=== PATIENT | female | born 1955 | race African-American/Black ===

== ENCOUNTER 2017-05-13 19:47 | Emergency (ER) | payer OTHER ==
[~2017-05-13] VITALS: Ht 152.4 cm; Wt 104.3 kg
[~2017-05-13 19:47] MED LIST: ADVAIR 250-501 EACH IH; ADVAIR HFA 1112 UNIT; ALDACTONE25 MG PO; ASPIR 8181 MG PO; ASPIRIN EC81 M1 PO; AUGMENTIN 875875 MG PO; BUMETANIDE 1 MG1 M1 PO; BUMETANIDE0.25 MG/1 PO; CARVEDILOL12.5 MG PO; COLACE100 MG PO; COMPAZINE10 M1 PO; FERREX-150 PLU150 MG PO; FLAGYL500 MG PO; FLEXERIL PO; HUMALOG100 UNIT/2 SUBQ; HYDROCODONE-AP1 EAC6 PO; IBUPROFEN 800800 MG PO; IRON325 PO; ISOSORBIDE DINI20 M2 PO; K-DUR 20 MEQ T20 MEQ PO; LANTUS SUBQ; LANTUS100 UNIT/M SUBQ; LASIX 40 MG TAB40 M1 PO; LEVAQUIN PO; LEVEMIR SUBQ; LIPITOR 20 MG T20 M1 PO; LISINOPRIL10 MG PO; LISINOPRIL40 MG PO; LOPRESSOR25 PO; LORTAB 5 MG/5001 TA1 PO; MAG-OX 400 TAB400 M1 PO; MICONAZOLE 3 2200 M1 VG; MYCELEX PO; NORCO 5-325 TA1 EACH PO; NORFLEX100 MG PO; NOVOLIN 70100 UNIT/5 SQ; NOVOLOG100 UNIT/1; NOVOLOG100 UNIT/1 SQ; NOVOLOG100 UNIT/1 SUBQ; PREDNISONE 10 M10 MG PO; PROAIR HFA8.5 GM INH; PROBIOTIC1 EAC1 PO; SENOKOT-S1 TA1 PO; SERTRALINE HCL50 MG PO; SIMVASTATIN40 MG PO; TESSALON PERLE100 MG PO; TOPROL XL50 MG PO; TRAMADOL 50 MG50 MG PO; TYLENOL325 MG PO; UNICOMPLEX M TA1 TA1 PO; VENTOLIN HFA 1818 GM INH; XOPENEX0.63 MG/3 INH; ZESTRIL2.5 MG PO; ZOFRAN4 MG PO; [UNRECOGNIZED DRUG - OTHER]
[2017-05-13 20:54] LABS: ABG SAMPLE TYPE ARTERIAL
[2017-05-13 21:04] LABS: ABSOLUTE NEUTROPHILS 8.7 thou/uL (1.4-8.2); BASOPHILS 0.8 % (0.0-2.0); EOSINOPHILS 1.4 % (0.0-3.0); HEMATOCRIT 34.9 % (37.0-47.0); HEMOGLOBIN 11.4 gm/dL (12.0-15.0); LYMPHOCYTES 26.2 % (24.0-44.0); MCH 29.1 pg (26.0-34.0); MCHC 32.7 g/dL (28.0-37.0); MCV 89.1 fL (80.0-100.0); MONOCYTES 7.1 % (1.0-8.0); PLATELET COUNT 329 thou/uL (150-400); POLYS 64.5 % (36.0-66.0); RBC 3.91 mil/uL (4.20-5.00); RDW 12.8 % (10.5-14.5); WBC 13.5 thou/uL (4.0-11.0)
[2017-05-13 21:07] LABS: MANUAL DIFF NO
[2017-05-13 21:11] LABS: CALCIUM 9.6 mg/dL (8.5-10.1); CREATININE 1.2 mg/dL (0.6-1.0); POTASSIUM 3.8 mmol/L (3.5-5.1)
[2017-05-13 21:15] LABS: ALBUMIN 3.1 g/dL (3.4-5.0); TOTAL BILIRUBIN 0.3 mg/dL (<0.1-1.0)
[2017-05-13 21:18] LABS: BE(vivo) 8.2 mmol/L (-2 to +3); HCO3 33.4 mmol/L (22.0-26.0); O2(CT) 16.6 mL/dL (15.0-23.0); O2Hb 97.7 % (92.0-98.0); PCO2 49.3 mmHg (35.0-45.0); PO2 125.1 mmHg (80.0-100.0); pH 7.449 (7.360-7.450); sO2 98.6 % (92.0-98.0); tCO2 34.9 mmol/L (24.0-30.0)
[2017-05-13 21:19] LABS: STICK SITE L.RADIAL
[2017-05-13] MEDS ORDERED: ACCUNEB SO1.25 MG/1 INH (22:40)
[2017-05-13] MEDS ORDERED: ATORVASTATIN CA40 MG PO (22:41)
[2017-05-13] MEDS ORDERED: BRIMONIDINE TAR1 BO1 OP (22:42)
[2017-05-13] MEDS ORDERED: BUMETANIDE0.25 MG/1 PO (22:44)
[2017-05-13] MEDS ORDERED: CARVEDILOL12.5 MG PO (22:45)
[2017-05-13] MEDS ORDERED: FEOSOL325 M1 PO (22:47)
[2017-05-13] MEDS ORDERED: MIRALAX17 GM PO (22:48)
[2017-05-13] MEDS ORDERED: LYRICA 50 MG50 MG PO (22:49)
[2017-05-13 23:40] LABS: URINE BILIRUBIN NEGATIVE (Negative); URINE BLOOD NEGATIVE (Negative); URINE COLOR YELLOW; URINE GLUCOSE-RANDOM* 1+ (Negative); URINE KETONES NEGATIVE (Negative); URINE LEUKOCYTES-REFLEX NEGATIVE (Negative); URINE PROTEIN (DIPSTICK) TRACE (Negative); URINE UROBILINOGEN 0.2 E.U./dl (0.2-1.0)
[2017-05-14] MEDS ORDERED: SENOKOT-S1 TA1 PO (00:09)
[2017-05-14] MEDS ORDERED: ZOFRAN ODT4 MG PO (00:09)
== END 2017-05-14 01:45 | disposition home or self-care (01) ==
LOC: ER 19:47
PROVIDERS: Emergency Medicine
DX: E11.65 Type 2 diabetes mellitus with hyperglycemia (principal); R11.2 Nausea with vomiting, unspecified; I10 Essential (primary) hypertension; E78.00 Pure hypercholesterolemia, unspecified; I25.2 Old myocardial infarction; E66.01 Morbid (severe) obesity due to excess calories; Z90.710 Acquired absence of both cervix and uterus; Z68.41 Body mass index [BMI] 40.0-44.9, adult; Z79.4 Long term (current) use of insulin; Z88.1 Allergy status to other antibiotic agents

== ENCOUNTER 2019-08-05 17:18 | Emergency (ER) | payer OTHER ==
[~2019-08-05] VITALS: Ht 149.9 cm; Wt 99.8 kg
[~2019-08-05 17:18] MED LIST changes: +ACCUNEB SO1.25 MG/1 INH; +ATORVASTATIN CA40 MG PO; +BRIMONIDINE TAR1 BO1 OP; +FEOSOL325 M1 PO; +LYRICA 50 MG50 MG PO; +MIRALAX17 GM PO; +ZOFRAN ODT4 MG PO
[2019-08-05 18:01] LABS: ABSOLUTE NEUTROPHILS 6.3 thou/uL (1.4-8.2); BASOPHILS 1.2 % (0.0-2.0); EOSINOPHILS 1.9 % (0.0-3.0); HEMATOCRIT 40.1 % (37.0-47.0); LYMPHOCYTES 31.1 % (24.0-44.0); MCH 28.7 pg (26.0-34.0); MCHC 32.3 g/dL (28.0-37.0); MCV 88.7 fL (80.0-100.0); PLATELET COUNT 298 thou/uL (150-400); POLYS 60.8 % (36.0-66.0); RBC 4.52 mil/uL (4.20-5.00); RDW 13.8 % (10.5-14.5); WBC 10.4 thou/uL (4.0-11.0)
[2019-08-05 18:06] LABS: ANION GAP 5 mmol/L (7-16); BUN 15 mg/dL (7-18); CALCIUM 9.5 mg/dL (8.5-10.1); CHLORIDE 101 mmol/L (98-107); CO2 31 mmol/L (21-32); CREATININE 0.8 mg/dL (0.6-1.0); GLUCOSE 238 mg/dL (74-106); POTASSIUM 3.9 mmol/L (3.5-5.1); SODIUM 137 mmol/L (136-145)
[2019-08-05 18:17] LABS: ALBUMIN 3.2 g/dL (3.4-5.0); SGOT 14 U/L (15-37); SGPT 18 U/L (30-65); TOTAL BILIRUBIN 0.2 mg/dL (<0.1-1.0); TOTAL PROTEIN 7.7 g/dL (6.4-8.2); TROPONIN-I <0.06 ng/mL (<0.06)
[2019-08-05] MEDS ORDERED: NOVOLIN 70100 UNIT/5 SUBQ (20:10)
[2019-08-05 20:58] VITALS: BP 121/47
== END 2019-08-05 21:04 | disposition home or self-care (01) ==
LOC: ER 17:18
PROVIDERS: Emergency Medicine
DX: I63.9 Cerebral infarction, unspecified (principal); R47.81 Slurred speech; G83.21 Monoplegia of upper limb affecting right dominant side; I10 Essential (primary) hypertension; E78.00 Pure hypercholesterolemia, unspecified; E11.9 Type 2 diabetes mellitus without complications; E66.9 Obesity, unspecified; Z68.41 Body mass index [BMI] 40.0-44.9, adult; Z90.710 Acquired absence of both cervix and uterus; Z88.1 Allergy status to other antibiotic agents

== ENCOUNTER 2020-02-16 14:59 | Inpatient (IN) | payer OTHER ==
[~2020-02-16] VITALS: Ht 149.9 cm; Wt 106.3 kg
[~2020-02-16 14:59] MED LIST changes: +BUMEX2 MG PO; +NOVOLIN 70100 UNIT/5 SUBQ
[2020-02-16 15:00] VITALS: BP 151/82
[2020-02-16 16:46] LABS: BASOPHILS 0.8 % (0.0-2.0); EOSINOPHILS 1.4 % (0.0-3.0); HEMATOCRIT 33.4 % (37.0-47.0); HEMOGLOBIN 10.8 gm/dL (12.0-15.0); LYMPHOCYTES 17.3 % (24.0-44.0); MCH 28.4 pg (26.0-34.0); MCHC 32.3 g/dL (28.0-37.0); MCV 87.9 fL (80.0-100.0); MONOCYTES 5.5 % (1.0-8.0); PLATELET COUNT 264 thou/uL (150-400); RDW 13.9 % (10.5-14.5); WBC 13.3 thou/uL (4.0-11.0)
[2020-02-16 16:58] LABS: ANION GAP 5 mmol/L (7-16); BUN 15 mg/dL (7-18); CALCIUM 9.5 mg/dL (8.5-10.1); CHLORIDE 100 mmol/L (98-107); CO2 32 mmol/L (21-32); CREATININE 0.8 mg/dL (0.6-1.0); GLUCOSE 235 mg/dL (74-106); POTASSIUM 4.5 mmol/L (3.5-5.1); SODIUM 137 mmol/L (136-145)
[2020-02-16 17:10] LABS: ALBUMIN 3.2 g/dL (3.4-5.0); SGOT 19 U/L (15-37); SGPT 53 U/L (30-65); TOTAL BILIRUBIN 0.5 mg/dL (<0.1-1.0); TOTAL PROTEIN 7.1 g/dL (6.4-8.2); TROPONIN-I <0.06 ng/mL (<0.06)
[2020-02-16 18:42] VITALS: BP 175/58
--- NOTE | 2020-02-16 18:42 | NUR ---
HAND OFF TOOL SENT TO 3W AT 7635
[2020-02-16 20:14] VITALS: BP 171/66
[2020-02-16 20:29] LABS: ALBUMIN 3.4 g/dL (3.4-5.0); TOTAL PROTEIN 6.7 g/dL (6.4-8.2)
--- NOTE | 2020-02-16 20:29 | NUR ---
ADMISSION NOTE: TALKED ABOUT THE RESON FOR ISOLATION. IV SITE FLUSHES AND NO PAIN. BP ELEVATED. SHE IS SJORT AND OBESE PULLING UP IN BED IN DIFFICULT FOR HER AT THIS WITH INCREASED OXYGEN DEMAND.
[2020-02-16 20:54] LABS: TSH 1.819 uIU/mL (0.358-3.740)
[2020-02-17 04:40] VITALS: BP 145/93
--- NOTE | 2020-02-17 05:39 | NUR ---
TITRATED HER OXYGEN DOWNB TO 4.5 LITERS, N/C. SHE IS AT 99 %. DENIES PAIN. TURNS SIDE TO SIDE WITH MINIAML ASSIST. SHE IS COMFORTABLE WITH HER BREATHING. CAREPLAN STARTED.
[2020-02-17 06:49] LABS: HEMATOCRIT 35.2 % (37.0-47.0); HEMOGLOBIN 11.1 gm/dL (12.0-15.0); MCH 28.3 pg (26.0-34.0); MCHC 31.6 g/dL (28.0-37.0); MCV 89.4 fL (80.0-100.0); RBC 3.94 mil/uL (4.20-5.00); RDW 14.3 % (10.5-14.5); WBC 11.2 thou/uL (4.0-11.0)
[2020-02-17 07:03] LABS: CALCIUM 9.1 mg/dL (8.5-10.1); CREATININE 0.8 mg/dL (0.6-1.0); MAGNESIUM 2.1 mg/dL (1.8-2.4); POTASSIUM 4.1 mmol/L (3.5-5.1)
[2020-02-17 07:58] VITALS: BP 118/77
--- NOTE | 2020-02-17 08:16 | NUR ---
RD consult received. Pt admitted with acute on chronic CHF, dyspnea. Pending COVID 19 results. Hx DM, HTN, CAD. Called pt room to speak with pt due to covid isolation restrictions. Pt states no problems with appetite. Experienced wt gain 25 lb from 07/2019 admit. On lasix. BG controlled. Extreme class III obesity BMI 49.5. Pt reports does not follow any type of Na restriction at home. Was receptive to some education. Will follow up for education once COVID 19 results available and pt feeling better. Provider has indicated mild protein calorie malnutrition: RD will defer. Low nutrition risk
--- NOTE | 2020-02-17 13:46 | NUR ---
INITIAL ASSESSMENT: Received consult. SW reviewed chart and spoke with nursing and attending physician. Pt was admitted from home due to CHF exacerbation/hypoxia. Pt is currently in Enhanced Isolation to r/o COVID-19. Pt with hx of aphasia and right sided weakness. SW spoke with pt's via phone. Introduced role of SW. Pt and spouse live in their home. There are 4 steps to enter the house and 6 steps inside. Pt's spouse states that pt ambulates with a walker. Pt has used [facility] in the past for home health. No hx of post-acute placement. Pt uses the [facility] in [place]. Pt's PCP is Dr. Shamar Sepulveda in [place]. Therapy evaluations to be ordered when results of COVID-19 test are available. SW is following to assist as needed with discharge planning.
--- NOTE | 2020-02-17 14:54 | HC ---
[facility] [place] [address] CONSULTATION Name: JIMMY CHAIDEZ Room #: 358-P [facility] IN M.R.#: [id number] Admission: 02/16/20 Attend Phys: Demetris Amaro MD Discharge: Date of : 57 Report #: [id number] THIS REPORT FOR: cc: Shonda Freed,Tanisha Sorto MD ~ CC: Shonda Amaro DATE OF SERVICE: 02/17/2020 ENDOCRINE CONSULTATION CONSULTING PHYSICIAN: Dr. Amaro. REASON FOR CONSULTATION: Uncontrolled type 2 diabetes mellitus, severe hyperglycemia. HISTORY OF PRESENT ILLNESS: This is a 64-year-old female patient whose medical background is significant for hypertension, hyperlipidemia, type 2 diabetes mellitus as well as coronary artery disease, status post CABG in 2010 and congestive heart failure. The patient presented to the ER yesterday with progressive dyspnea, generalized weakness and dyspnea on exertion. She was admitted for further care and monitoring. The patient was minimally interactive with me and seemed too tired to answer an extensive detailed questioning. She indicated that she has had type 2 diabetes mellitus for many years and that she is maintained on a regimen of 70/30 insulin at a dose of 35 units 3 times a day. She acknowledged that she does not monitor her blood glucose at home much at all and acknowledged that she has occasional issues with hypoglycemia, but describes that is mild and infrequent. She is not aware of issues pertaining to diabetic retinopathy, diabetic nephropathy or neuropathy. As noted above, the patient has a history of CAD, status post CABG x 4 in 2011, status post cerebrovascular accident. The patient is also known to have hyperlipidemia and is maintained on atorvastatin 40 mg daily. She is known to have hypertension and is maintained on lisinopril 10 mg daily and carvedilol 12.5 mg b.i.d. REVIEW OF SYSTEMS: CONSTITUTIONAL: Fatigue, tiredness, weakness, but not fever or chills. HEENT: Negative for sore throat, sinus pain, ear drainage. PULMONARY: Shortness of breath, cough, but not hemoptysis, dyspnea on exertion. CARDIAC: Dyspnea on exertion, lower extremity swelling, but not chest pain. GASTROINTESTINAL: Noted for abdominal distention, abdominal discomfort, nausea, but not vomiting. [address] [address] CONSULTATION Name: JIMMY CHAIDEZ Room #: 358-P [facility] IN M.R.#: [id number] Admission: 02/16/20 Attend Phys: Demetris Amaro MD Discharge: Date of : 57 Report #: [id number] NEUROLOGY: Lightheadedness, dizziness, but not seizure activity or frequent severe headaches. PSYCHIATRIC: Negative for delusions, hallucinations. DERMATOLOGY: Negative for rash, ulcers or other major changes. Otherwise, review of systems noncontributory other than those mentioned in HPI. PAST MEDICAL HISTORY: 1. Type 2 diabetes mellitus. 2. Hypertension. 3. Hyperlipidemia. 4. CHF. 5. CAD, status post CABG x 4 in 2011. 6. CVA. 7. Obesity. SURGICAL HISTORY: Noted for hysterectomy and CABG x 4 in 2011. MEDICATIONS: Aspirin 81 mg daily, lisinopril 10 mg daily, carvedilol 12.5 mg b.i.d., atorvastatin 40 mg daily, Bumex 2.5/10 daily, Humulin 70/30 insulin 35 units t.i.d. ALLERGIES: LEVOFLOXACIN. FAMILY HISTORY: Noncontributory. SOCIAL HISTORY: She lives with her . Denies use of tobacco, alcohol or illicit drugs. PHYSICAL EXAMINATION: GENERAL: An -[place] female patient who appears lethargic, tachypneic, but not in pain. VITAL SIGNS: Blood pressure 118/77 mmHg, heart rate is 69 beats per minute, respirations 16 per minute, temperature 36.6 degrees. CONSTITUTIONAL: The patient is sitting upright in bed, appears tachypneic, but not in pain. HEENT: Anicteric sclerae. Intact extraocular motions. NECK: Supple, without thyromegaly. CHEST: Noted for moderate air entry bilaterally with scattered rales and rhonchi. HEART: Regular rate and rhythm without murmurs or gallops. ABDOMEN: Distended, but soft. No guarding. Active bowel sounds. EXTREMITIES: Lower extremity exam is noted for +1 ankle edema. SKIN: No skin breaks or ulcerations. NEUROLOGIC: Awake, alert and oriented to time, place and person. The remainder of her examination is nonfocal. PSYCHIATRY: Flat mood and affect, interactive. [address] [address] CONSULTATION Name: JIMMY CHAIDEZ Room #: 358-P ADM IN M.R.#: [id number] Admission: 02/16/20 Attend Phys: Demetris Amaro MD Discharge: Date of : 57 Report #: [id number] LABORATORY DATA: On arrival, blood glucose was 154, this morning at 162 mg/dL. Sodium 139, potassium 4.1, chloride 103, CO2 33, anion gap 3, BUN 16, creatinine 0.8, glucose 168, lipase 400, total bilirubin 0.5, calcium 9.1, phosphorus 2.9, magnesium 2.1, alkaline phosphatase 185, total protein 6.7, albumin 3.4, EGFR 88. Total CPK 57. BNP 605. INR 1.1. White blood count 11.2, hemoglobin 11.1, hematocrit 35.2, and platelets 262. TSH 1.819. Hemoglobin A1c on 01/03/2017 was at 12.1. COVID testing is pending. ASSESSMENT AND PLAN: 1. Type 2 diabetes mellitus. As noted above, the patient is under active therapy with high dose insulin therapy in the form of mixed insulin. Unfortunately, she does not have any glycemic data available to share. Historically, the patient has run very high hemoglobin A1c values in the past. I will obtain current hemoglobin A1c value to better assess her overall level of control. On arrival, I consulted with Dr. Amaro and we agreed to transition the patient to basal bolus therapy in the form of Lantus insulin 40 units q.p.m. in addition to Humalog insulin 10 units t.i.d. before meals along with moderate intensity Humalog supplemental scale. So far, the patient's blood glucose values have reflected a positive outlook on this regimen. I will have her continue the current regimen for the time being and adjust her insulin doses as needed. 2. Hypertension. The patient's level of blood pressure control is adequate on the current lisinopril regimen; she is to continue with the same. 3. Hyperlipidemia. The patient is maintained on atorvastatin therapy with good tolerability, she is to continue with the same. 4. I certainly appreciate this consultation by Dr. Amaro. <ELECTRONICALLY SIGNED> By: Tanisha Mukherjee MD 02/17/20 1454 1145 1208 Tanisha Mukherjee MD /nt
[2020-02-17 17:19] VITALS: BP 151/54
[2020-02-17 19:38] VITALS: BP 134/55
[2020-02-17 22:56] VITALS: BP 112/39
--- NOTE | 2020-02-18 00:18 | NUR ---
ASSUMED CARE OF PATIENT AT 1900. VITAL SIGNS TAKEN. PRN ORDER FOR PAIN MEDICATION OBTAINED. ADMINISTERED NOC MEDS. PLACED NEW IV IN RIGHT FOREARM. PATIENT STABLE. TRANSFERRED CARE OF PATIENT TO SHERRY CRABTREE AT 2200.
[2020-02-18 03:44] VITALS: BP 159/79
[2020-02-18 04:07] LABS: GLYCOHEMOGLOBIN (HGB A1C) 8.4 % (4.8-5.6)
[2020-02-18 05:18] LABS: HEMATOCRIT 33.7 % (37.0-47.0); HEMOGLOBIN 10.6 gm/dL (12.0-15.0); MCHC 31.6 g/dL (28.0-37.0); MCV 88.7 fL (80.0-100.0); RBC 3.8 mil/uL (4.20-5.00); WBC 12.8 thou/uL (4.0-11.0)
--- NOTE | 2020-02-18 05:28 | NUR ---
Transferred from [facility] around 2245. O2 at 4.5 L/NC , she does get short of breath with exertion. Denies any pain. Able to turn self on bed. Bed alarm on for safety and SCD's in place.Making progress towards care plan goals.
[2020-02-18 08:00] VITALS: BP 148/49
--- NOTE | 2020-02-18 09:34 | 2DMMODE ---
[facility] [place] [address] 2 D/M-MODE ECHOCARDIOGRAM Name: JIMMY CHAIDEZ Room #: 200-I ADM IN M.R.#: [id number] Admission: 02/16/20 Attend Phys: Demetris Amaro MD Discharge: Date of : 57 Report #: [id number] THIS REPORT FOR: cc: Shonda Freed,Shonda Coleman,Jak Zendejas MD ~ APPROVED REPORT Study performed: 02/18/2020 08:46:29 EXAM: Comprehensive 2D, Doppler, and color-flow Echocardiogram Patient Location: Bedside Room #: 200 Status: routine BSA: 1.96 HR: 64 bpm BP: 159/79 mmHg Rhythm: Irregular Other Information Study Quality: Poor Technically limited study due to morbid obesity, no cooperation. Indications Short of breath. Hx: CHF, NM, stent, CABG, HTN, HLP. 2D Dimensions IVSd: 16.10 (7-11mm) LVOT Diam: 19.15 (18-24mm) LVDd: 41.53 mm PWd: 16.10 (7-11mm) LVDs: 27.79 (25-40mm) Aortic Root: 25.72 mm Pulmonary Valve PV Peak Francisco.: 0.99 m/s PV Peak Gr.: 3.92 mmHg Tricuspid Valve TR Peak Francisco.: 2.90 m/s RAP Estimate: 10.00 mmHg TR Peak Gr.: 34.00 mmHg PA Pressure: 44.00 mmHg Left Ventricle [facility] [address] [place] [address] 2 D/M-MODE ECHOCARDIOGRAM Name: JIMMY CHAIDEZ Room #: 200-I ADM IN M.R.#: [id number] Admission: 02/16/20 Attend Phys: Demetris Amaro, Discharge: Date of : 57 Report #: [id number] The left ventricle is normal size. Moderate concentric left ventricular hypertrophy. Left ventricular systolic function is normal. LVEF is 60-65%. This study is not technically sufficient to allow evaluation of the LV diastolic function. Right Ventricle Right ventricle is not well visualized. Atria The left atrium size is normal. The right atrium size is normal. Aortic Valve The aortic valve is mildly calcified. Unable to get gradient due to poor image quality. Probable adequate excursion. No aortic regurgitation is present. Mitral Valve The mitral valve is normal in structure. Mild mitral annular calcification. Trace mitral regurgitation. Tricuspid Valve The tricuspid valve is normal in structure. Moderate tricuspid regurgitation. Estimated PAP is 45mmHg. Pulmonic Valve Pulmonic valve is not well visualized. Great Vessels The aortic root is normal in size. IVC is dilated and collapses <50% with inspiration. Pericardium There is no pericardial effusion. <Conclusion> The left ventricle is normal size. Moderate concentric left ventricular hypertrophy. Left ventricular systolic function is normal. Right ventricle is not well visualized. The left atrium size is normal. The aortic valve is mildly calcified. Unable to get gradient due to poor image quality. Probable adequate excursion. [facility] [address] [place] [address] 2 D/M-MODE ECHOCARDIOGRAM Name: JIMMY CHAIDEZ Room #: 200-I ADM IN M.R.#: [id number] Admission: 02/16/20 Attend Phys: Demetris Amaro, Discharge: Date of : 57 Report #: [id number] Trace mitral regurgitation. Moderate tricuspid regurgitation. Estimated PAP is 45mmHg. <ELECTRONICALLY SIGNED> By: Jak Chambers MD 02/18/2033 2 2 Jak Chambers MD /INF
[2020-02-18 12:19] LABS: CALCIUM 9.3 mg/dL (8.5-10.1); CREATININE 0.8 mg/dL (0.6-1.0); MAGNESIUM 2.2 mg/dL (1.8-2.4); POTASSIUM 4.1 mmol/L (3.5-5.1)
[2020-02-18 15:48] VITALS: BP 143/71
--- NOTE | 2020-02-18 16:47 | NUR ---
PT WAS ENCOURAGED TO INCREASE ACTIVITY...SHE SAT IN CHAIR @ 2 HOURS THEN WALKED FROM ROOM 200 TO ROOM 203 AND BACK...ON WAY BACK TO ROOM LEANED WAY FORWARD AND NEEDED HEAVY ASSIST OF 2 WITH WALKER AND GAIT BELT AND W/C BEHIND HER FOR SAFETY...SHE ALMOST COULD NOT MAKE IT BACK TO BED...VERY SOA AND TIRED...
[2020-02-18 19:00] VITALS: BP 132/37
[2020-02-19] VITALS (7 sets, daily range): BP systolic 135–161; BP diastolic 60–81
[2020-02-19 05:23] LABS: CALCIUM 8.8 mg/dL (8.5-10.1); CREATININE 0.8 mg/dL (0.6-1.0); MAGNESIUM 2.1 mg/dL (1.8-2.4); POTASSIUM 3.9 mmol/L (3.5-5.1)
[2020-02-19 05:36] LABS: HEMATOCRIT 33.1 % (37.0-47.0); HEMOGLOBIN 10.7 gm/dL (12.0-15.0); MCH 28.8 pg (26.0-34.0); MCHC 32.2 g/dL (28.0-37.0); MCV 89.3 fL (80.0-100.0); RBC 3.7 mil/uL (4.20-5.00); RDW 14.2 % (10.5-14.5); WBC 11.3 thou/uL (4.0-11.0)
--- NOTE | 2020-02-19 05:45 | NUR ---
pt up to chair and asst to br and back to bed pt soa with activity, vss, no c/o pain able to reposition self in bed, reese with yellow urine, will con't to monitor per ppoc.
[2020-02-19] MEDS ORDERED: DEMADEX20 MG PO (11:54)
[2020-02-19] MEDS ORDERED: MONOPRIL20 MG PO (11:54)
[2020-02-19] MEDS ORDERED: MIRALAX17 GM PO (11:54)
[2020-02-19] MEDS ORDERED: LANTUS SUBQ (11:54)
[2020-02-19] MEDS ORDERED: HUMALOG100 UNIT/1 SUBQ ×2 (11:54)
--- NOTE | 2020-02-19 13:21 | NUR ---
DISCHARGE NOTE: REMI reviewed chart and spoke with nursing and attending physician. Pt transferred to 2[facility] from [facility], as pt's COVID-19 test was negative. Therapy has evaluated pt and recommendation made for pt to consider post-acute placement. [facility] consulted and can accept pt. Pt does not want to go to [facility]. REMI spoke with pt's spouse via phone to provide update and discuss discharge plan. Pt's spouse states he is agreeable with pt coming home with HH. Options provided for agencies. Pt has used [facility] in the past. Pt's spouse is agreeable with referral to [facility]. REMI confirmed pt's home address and phone number. Pt's PCP is Dr. Shamar Sepulveda in [place]. Therapy worked with pt again on navigating stairs. Pt did well and therapy feels pt can return home with HH. REMI faxed referral [facility] and spoke with Zeeshan in intake who confirms they are able to accept pt on service. Awaiting final discharge orders/summary at this time. REMI updated pt's nurse, who will contact pt's when she is ready for discharge. REMI left voice message for pt's to provide update. Pt's family to provide transportation home. Contact info for HH placed in pt's discharge summary. Finalized discharge orders/summary to be faxed to when available. REMI is following to finalize discharge. [facility]--
[2020-02-19] MEDS ORDERED: NOVOLIN 70100 UNIT/5 SUBQ (15:08)
--- NOTE | 2020-02-19 15:10 | NUR ---
RECEIVED PT'S CARE AROUND 0730; PT. ON BED; ALERT; DURING AM ASSESSMENT ALERT TO PERSON; PLACE; DAY; NO C/O PAIN; AM MEDICATIONS GIVEN; EASEMENT WORKER AT THE BED SIDE; OK FOR PT. TO GO HOME FROM CARDIOLOGY SIDE; PER HOSPITALIST OK TO D/C [facility] & POSSIBLE GOING HOME OR REHAB; [facility] D/C AT 1300; MONITORING; CALLED EARLY ON THE MORNING; UPDATED ABOUT PT'S HEALTH AND POC; REQUESTED CALL FROM PHYSICIAN; PHYSICIAN NOTIFIED; PER OPERATIONS TEAM LEADER PT. & AGREED TO GO HOME WITH HH; CALLED TO NOTIFIE ABOUT D/C ORDERS; PER , PHYSICIAN HAS NOT CONTACTED HIM; PHYSICIAN NOTIFIED; NUMBER PROVIDED; POC PT. D/C AT HOME WITH HOME HEALTH; CALLED & COUPON CLERK ARRANGED AT 1600; PT. NOTIFIED; STAY UNDERSTANDING; ASSESSMENT CHARGED; FOLLOWED POC; WORKING ON D/C ORDERS;
--- NOTE | 2020-02-20 09:34 | NUR ---
REMI faxed finalized discharge orders/summary to [facility] this morning and notified Zeeshan in intake of pt's discharge. Pt did discharge home last evening. SW was contacted by pt's nurse stating that pt's sister had called and wanted pt to go to rehab. Pt's sister was not listed as a spokesperson for pt. Pt continued to refuse going to rehab. Pt's spouse picked up pt last evening and provided transportation home. No additional SW needs identified at this time, but is available to assist should needs arise.
--- NOTE | 2020-02-20 12:24 | EKG ---
[facility] [place] [address] ELECTROCARDIOGRAM REPORT Name: JIMMY CHAIDEZ Room #: 200-I [facility] IN M.R.#: [id number] Admission: 02/16/20 Attend Phys: Demetris Amaro MD Discharge: 02/19/20 Date of : 57 Report #: [id number] THIS REPORT FOR: cc: Shonda Freed Diane C. DO Lundgren, Craig H. MD [facility] ~ THIS REPORT FOR: //name// [facility] ED Test Date: 2020-02-16 Test Time: 15:26:19 Pat Name: JIMMY CHAIDEZ Department: Room: 358 Gender: F Internist: LAUREN : 1955 Requested By: Apple Nicholson Order Number: [id number] MD: Miguel Paz Measurements Intervals [place] Rate: 86 P: 0 IL: 182 QRS: 75 QRSD: 84 T: 109 QT: 403 QTc: 482 Interpretive Statements Sinus rhythm Abnormal T, consider ischemia, lateral leads Compared to ECG 12/31/2016 08:59:55 Right-axis deviation no longer present T-wave abnormality still present Electronically Signed On 02-17-2020 7:55:39 CDT by Miguel Paz [email or web address] <ELECTRONICALLY SIGNED> By: Miguel Paz MD, FAC 02/17/20 0755 1526 1526 Miguel Paz MD, [facility] /EPI
[2020-02-21 16:07] LABS: ADENOVIRUS Negative (Negative); INFLUENZA A Negative (Negative); INFLUENZA B Negative (Negative); METAPNEUMOVIRUS Negative (Negative); PARAINFLUENZA 1 Negative (Negative); PARAINFLUENZA 2 Negative (Negative); PARAINFLUENZA 3 Negative (Negative); RHINOVIRUS Negative (Negative); RSV A Negative (Negative); RSV B Negative (Negative)
== END 2020-02-19 16:37 | disposition home health service (06) | DRG 291 ==
LOC: ER 14:59 → 2N 18:24 → 3W 18:24 → EROBS 18:24 → 3W 19:29 → 2N 02-17 21:30
PROVIDERS: Emergency Medicine; Internal Medicine; ADMIT Internal Medicine; ATTEND Internal Medicine
DX: I11.0 Hypertensive heart disease with heart failure (principal); J18.9 Pneumonia, unspecified organism; J96.21 Acute and chronic respiratory failure with hypoxia; I31.9 Disease of pericardium, unspecified; E44.1 Mild protein-calorie malnutrition; Z68.42 Body mass index [BMI] 45.0-49.9, adult; I69.351 Hemiplegia and hemiparesis following cerebral infarction affecting right dominant side; I50.33 Acute on chronic diastolic (congestive) heart failure; E66.01 Morbid (severe) obesity due to excess calories; I25.10 Atherosclerotic heart disease of native coronary artery without angina pectoris; E78.00 Pure hypercholesterolemia, unspecified; E11.9 Type 2 diabetes mellitus without complications; Z20.828 Contact with and (suspected) exposure to other viral communicable diseases; Z95.1 Presence of aortocoronary bypass graft; I25.2 Old myocardial infarction; Z90.710 Acquired absence of both cervix and uterus; Z88.1 Allergy status to other antibiotic agents; Z79.82 Long term (current) use of aspirin; Z79.899 Other long term (current) drug therapy; I69.320 Aphasia following cerebral infarction
CPT/HCPCS: 10081; 10879

== ENCOUNTER 2020-06-11 13:17 | Emergency (ER) | payer OTHER ==
[~2020-06-11] VITALS: Ht 162.6 cm; Wt 145.2 kg
[~2020-06-11 13:17] MED LIST changes: +DEMADEX20 MG PO; +HUMALOG100 UNIT/1 SUBQ; +MONOPRIL20 MG PO
[2020-06-11 13:57] LABS: BASOPHILS 0.7 % (0.0-2.0); EOSINOPHILS 0.5 % (0.0-3.0); HEMATOCRIT 35.7 % (37.0-47.0); HEMOGLOBIN 11.2 gm/dL (12.0-15.0); MCH 27.4 pg (26.0-34.0); MCHC 31.4 g/dL (28.0-37.0); MCV 87.2 fL (80.0-100.0); MONOCYTES 4.1 % (1.0-8.0); PLATELET COUNT 356 thou/uL (150-400); POLYS 82.7 % (36.0-66.0); RDW 16.2 % (10.5-14.5); WBC 10.9 thou/uL (4.0-11.0)
[2020-06-11 14:14] LABS: APTT 39.9 Seconds (24.5-32.8); INR 1.1
[2020-06-11 14:23] LABS: ANION GAP 8 mmol/L (7-16); BUN 24 mg/dL (7-18); CALCIUM 8.8 mg/dL (8.5-10.1); CHLORIDE 106 mmol/L (98-107); CO2 28 mmol/L (21-32); CREATININE 0.8 mg/dL (0.6-1.0); GLUCOSE 51 mg/dL (74-106); POTASSIUM 4.7 mmol/L (3.5-5.1); SODIUM 142 mmol/L (136-145)
[2020-06-11 14:30] LABS: ALBUMIN 3.2 g/dL (3.4-5.0); MAGNESIUM 2.5 mg/dL (1.8-2.4); SGOT 41 U/L (15-37); SGPT 64 U/L (30-65); TOTAL BILIRUBIN 0.6 mg/dL (0.2-1.0); TOTAL PROTEIN 7.6 g/dL (6.4-8.2); TROPONIN-I <0.06 ng/mL (<0.06)
[2020-06-11 15:46] VITALS: BP 177/83
[2020-06-11 15:53] LABS: ANION GAP 8 mmol/L (7-16); BUN 13 mg/dL (7-18); CHLORIDE 123 mmol/L (98-107); CO2 18 mmol/L (21-32); CREATININE 0.3 mg/dL (0.6-1.0); POTASSIUM 3.8 mmol/L (3.5-5.1); SODIUM 149 mmol/L (136-145)
[2020-06-11 15:56] LABS: CALCIUM < 5.0 mg/dL (8.5-10.1); GLUCOSE 37 mg/dL (74-106)
== END 2020-06-11 16:30 | disposition home or self-care (01) ==
LOC: ER 13:17
PROVIDERS: Emergency Medicine
DX: E11.649 Type 2 diabetes mellitus with hypoglycemia without coma (principal); I11.0 Hypertensive heart disease with heart failure; I50.9 Heart failure, unspecified; J45.909 Unspecified asthma, uncomplicated; I25.2 Old myocardial infarction; E66.01 Morbid (severe) obesity due to excess calories; I48.91 Unspecified atrial fibrillation; Z95.1 Presence of aortocoronary bypass graft; Z79.01 Long term (current) use of anticoagulants; Z86.73 Personal history of transient ischemic attack (TIA), and cerebral infarction without residual deficits; Z79.82 Long term (current) use of aspirin; Z79.2 Long term (current) use of antibiotics; Z79.899 Other long term (current) drug therapy; W18.30XA Fall on same level, unspecified, initial encounter; Y93.89 Activity, other specified; Y92.098 Other place in other non-institutional residence as the place of occurrence of the external cause; Y99.9 Unspecified external cause status

== ENCOUNTER 2020-06-30 11:23 | Emergency (ER) | payer OTHER ==
[~2020-06-30] VITALS: Ht 162.6 cm; Wt 104.3 kg
[2020-06-30 12:36] LABS: ABSOLUTE NEUTROPHILS 5.1 thou/uL (1.4-8.2); BASOPHILS 0.8 % (0.0-2.0); EOSINOPHILS 2.3 % (0.0-3.0); HEMATOCRIT 32.1 % (37.0-47.0); HEMOGLOBIN 10.1 gm/dL (12.0-15.0); LYMPHOCYTES 21.9 % (24.0-44.0); MCH 27.8 pg (26.0-34.0); MCHC 31.6 g/dL (28.0-37.0); MCV 87.9 fL (80.0-100.0); MONOCYTES 7.9 % (1.0-8.0); PLATELET COUNT 285 thou/uL (150-400); POLYS 67.1 % (36.0-66.0); RBC 3.65 mil/uL (4.20-5.00); RDW 17.9 % (10.5-14.5); WBC 7.6 thou/uL (4.0-11.0)
[2020-06-30 12:56] LABS: CALCIUM 8.4 mg/dL (8.5-10.1); CREATININE 0.9 mg/dL (0.6-1.0)
[2020-06-30 12:58] LABS: POTASSIUM 5.8 mmol/L (3.5-5.1)
[2020-06-30 13:01] LABS: ALBUMIN 2.7 g/dL (3.4-5.0); TOTAL BILIRUBIN 0.7 mg/dL (0.2-1.0); TOTAL PROTEIN 6.6 g/dL (6.4-8.2)
[2020-06-30 13:35] LABS: URINE BILIRUBIN NEGATIVE (Negative); URINE BLOOD NEGATIVE (Negative); URINE CLARITY CLEAR; URINE COLOR YELLOW; URINE GLUCOSE-RANDOM* NEGATIVE (Negative); URINE KETONES NEGATIVE (Negative); URINE LEUKOCYTES-REFLEX NEGATIVE (Negative); URINE NITRITE-REFLEX NEGATIVE (Negative); URINE PROTEIN (DIPSTICK) 1+ (Negative); URINE SPECIFIC GRAVITY >= 1.030 (1.005-1.035); URINE UROBILINOGEN 0.2 E.U./dl (0.2-1.0)
[2020-06-30 13:50] LABS: BACTERIA-REFLEX 1-9 Few /HPF (None Seen); CRYSTALS None Seen /LPF (None Seen); URINE RBC None Seen /HPF (0-2)
[2020-06-30 13:51] LABS: URINE WBC-REFLEX 0-5 Rare /HPF (0-5)
[2020-06-30 13:52] LABS: HYALINE CASTS 0-3 Few /LPF (None Seen); SQUAMOUS 4-10 Moderate /LPF (0-3)
[2020-06-30] MEDS ORDERED: PRINIVIL10 MG PO (14:32)
--- NOTE | 2020-06-30 15:53 | NUR ---
CASE MANAGEMENT RECEIVED ORDER FOR OPTIONS FOR HH PT WAS ON SERVICE WITH [facility] #[phone] IN FEBRUARY. FAXED ER NOTE AND FACE SHEET TO [facility] AND SPOKE WITH DIANELYS IN INTAKE SHE RECEIVED NOTE IN CASE PT CALL INQUIRING ABOUT HH. ALSO FAXED ER NOTE TO PT'S PCP DR HENRIETTA FERGUSON'S OFFICE RECEIVED CONFIRMATION SO IF HE WOULD LIKE TO FOLLOW PT FOR HH.
[2020-06-30 16:07] VITALS: BP 164/67
--- NOTE | 2020-07-01 07:52 | EKG ---
[facility] [place] [address] ELECTROCARDIOGRAM REPORT Name: JIMMY CHAIDEZ Room #: [facility]#: [id number] Admission: 06/30/20 Attend Phys: Discharge: 06/30/20 Date of : 57 Report #: [id number] THIS REPORT FOR: cc: Manoj Sepulveda MD, Kirk D. MD Lundgren,Miguel Peña MD [facility] THIS REPORT FOR: //name// [facility] ED Test Date: 2020-06-30 Test Time: 12:37:42 Pat Name: JIMMY CHAIDEZ Department: Room: Gender: F Front Desk Assistant: : 1955 Requested By: Pam Gonzales Order Number: [id number] MD: Miguel Paz Measurements Intervals [place] Rate: 61 P: 46 NM: 205 QRS: 65 QRSD: 102 T: 108 QT: 461 QTc: 465 Interpretive Statements Sinus rhythm No significant abnormality Compared to ECG 02/16/2020 15:26:19 T wave abnormality no longer present Electronically Signed On 07-01-2020 7:52:01 CDT by Miguel Paz [email or web address] <ELECTRONICALLY SIGNED> By: Miguel Paz MD, [facility] 07/01/20 0752 1237 1237 Miguel Paz MD, [facility] /EPI
== END 2020-06-30 16:30 | disposition home or self-care (01) ==
LOC: ER 11:23
PROVIDERS: Student in an Organized Health Care Education/Training Program
DX: S81.802A Unspecified open wound, left lower leg, initial encounter (principal); S81.801A Unspecified open wound, right lower leg, initial encounter; R60.0 Localized edema; E87.70 Fluid overload, unspecified; J45.909 Unspecified asthma, uncomplicated; E78.5 Hyperlipidemia, unspecified; E11.9 Type 2 diabetes mellitus without complications; I11.0 Hypertensive heart disease with heart failure; I50.9 Heart failure, unspecified; I25.2 Old myocardial infarction; Z95.1 Presence of aortocoronary bypass graft; X58.XXXA Exposure to other specified factors, initial encounter; Y93.89 Activity, other specified; Y92.89 Other specified places as the place of occurrence of the external cause; Y99.8 Other external cause status

== ENCOUNTER 2020-07-15 10:43 | Emergency (ER) | payer OTHER ==
[~2020-07-15] VITALS: Ht 165.1 cm; Wt 105.6 kg
--- NOTE | ~2020-07-15 | HC ---
[facility] [place] [address] CONSULTATION Name: JIMMY CHAIDEZ Room #: DEP [facility]#: [id number] Admission: 07/15/20 Attend Phys: Discharge: 07/15/20 Date of : 57 Report #: [id number] THIS REPORT FOR: cc: Manoj Sepulveda MD, Kirk D. MD Khosla, Parveen K. MD ~ CC: Manoj Escamilla DATE OF SERVICE: 07/15/2020 HISTORY OF PRESENT ILLNESS: This is a 65-year-old female patient, who was seen by me at the consultation from Dr. John from Emergency Room. Initially, the history was from him, because the patient cannot provide any history. The history was that the patient was last seen normal last evening. Then, she was brought in here. There is some question that she was hypoglycemic in her 40s and there is some question that, that reading may not be accurate. Blood sugar at one time was noticed to be 48, but full accuracy of that is not confirmed. She underwent a CT and CT angiogram and perfusion by Emergency Room physician. He called me after that and apparently, the patient has bilateral carotid disease and left middle cerebral artery occlusion. I asked him to talk to the radiologist and see if it is penumbra or is a completed stroke. He called me back saying it was penumbra as per radiologist. I came back and saw the patient and subsequently I was able to talk to the patient's . He gives a history that this patient had a stroke about 6 months ago that affected her speech as well as right-sided weakness. I cannot get a clear history that if she is any worse than before, it looks like she was left with significant deficit. Her MRI was done at [facility] and is not available to me. REVIEW OF SYSTEMS: Positive for CVA 6 months ago. She had multiple cardiac problems as per history. She had been admitted here with congestive heart failure. She does have a history of diabetes and hypertension and morbid obesity. It is not clear if she has sleep apnea or not. For the stroke, according to the , she was never admitted. That was the relevant 14-point review of system I can get. PAST MEDICAL HISTORY: Positive for stroke 6 months ago. FAMILY HISTORY: Unremarkable. SOCIAL HISTORY: According to the , she does not smoke. PHYSICAL EXAMINATION: Pretty limited and she is aphasic and that makes it very difficult to do any examination. She can follow simple commands, but she barely has any speech output. I do not see there is a marked facial palsy, but I cannot rule out small facial palsy. She is definitely weak in the right upper [facility] [address] [place] [address] CONSULTATION Name: JIMMY CHAIDEZ Room #: DEP [facility]#: [id number] Admission: 07/15/20 Attend Phys: Discharge: 07/15/20 Date of : 57 Report #: [id number] and right lower extremity. How much is new and how much is old I cannot tell, because I have not seen her in the past. There is no meningeal sign. Sensory system examination is not possible because the patient is not able to cooperate because of her perfusion. CT angio were already done and those were reviewed. IMPRESSION: Left hemispheric cerebrovascular accident. It is very difficult to tell how much is new and how much is old. I think the best will be to get her evaluated by some higher level of care hospital, either at and [facility], so that they can review the films with some neuroradiologist. They can also decide if they need to do an MRI to look for diffusion perfusion mismatch. With this history, it becomes very difficult to tell if anything is new or if all is old, but if the radiologist here is saying that there is a penumbra, then I think the best is to get this case reviewed by some higher level of care stroke neurologist and neuroradiologist to see what their opinion is and as I understand from ER doctor, that is going to be done. Thank you very much for this referral. By: 1424 1519 Demetrius Ferguson MD /matthew
[~2020-07-15 10:43] MED LIST changes: +PRINIVIL10 MG PO
[2020-07-15 11:10] LABS: HEMOGLOBIN 11.5 gm/dL (12.0-15.0); MCHC 31.9 g/dL (28.0-37.0); MCV 87.8 fL (80.0-100.0); RBC 4.11 mil/uL (4.20-5.00); RDW 18.5 % (10.5-14.5); WBC 7.5 thou/uL (4.0-11.0)
[2020-07-15 11:23] LABS: ANION GAP 7 mmol/L (7-16); BUN 19 mg/dL (7-18); CALCIUM 9.2 mg/dL (8.5-10.1); CHLORIDE 109 mmol/L (98-107); CO2 31 mmol/L (21-32); CREATININE 0.7 mg/dL (0.6-1.0); GLUCOSE 87 mg/dL (74-106); POTASSIUM 4.6 mmol/L (3.5-5.1); SODIUM 147 mmol/L (136-145)
[2020-07-15 11:26] LABS: APTT 35.6 Seconds (24.5-32.8); INR 1.1; PROTIME 11.5 Seconds (9.3-11.4)
[2020-07-15 11:31] LABS: TROPONIN-I <0.06 ng/mL (<0.06)
[2020-07-15 11:39] LABS: URINE BILIRUBIN NEGATIVE (Negative); URINE BLOOD TRACE (Negative); URINE CLARITY SL CLOUDY; URINE COLOR YELLOW; URINE GLUCOSE-RANDOM* NEGATIVE (Negative); URINE KETONES NEGATIVE (Negative); URINE LEUKOCYTES-REFLEX TRACE (Negative); URINE NITRITE-REFLEX NEGATIVE (Negative); URINE PROTEIN (DIPSTICK) 1+ (Negative); URINE SPECIFIC GRAVITY >= 1.030 (1.005-1.035); URINE UROBILINOGEN 0.2 E.U./dl (0.2-1.0)
[2020-07-15] MEDS ORDERED: SPIRONOLACTONE25 MG PO (11:44)
[2020-07-15] MEDS ORDERED: MONOPRIL20 MG PO (11:45)
[2020-07-15 11:51] LABS: BE(vivo) 0.5 mmol/L (-2 to +3); HCO3 26.3 mmol/L (22.0-26.0); PO2 83.6 mmHg (80.0-100.0); pH 7.365 (7.360-7.450); sO2 95.9 % (92.0-98.0)
[2020-07-15 12:02] LABS: BACTERIA-REFLEX 1-9 Few /HPF (None Seen); CASTS None Seen /LPF (None Seen); CRYSTALS None Seen /LPF (None Seen); SQUAMOUS >10 Many /LPF (0-3); URINE RBC 0-2 Rare /HPF (0-2); URINE WBC-REFLEX 0-5 Rare /HPF (0-5)
--- NOTE | 2020-07-15 12:22 | EKG ---
[facility] [place] [address] ELECTROCARDIOGRAM REPORT Name: JIMMY CHAIDEZ Room #: [facility]..#: [id number] Admission: Attend Phys: Discharge: Date of : 57 Report #: [id number] THIS REPORT FOR: cc: Manoj Sepulveda MD, Kirk D. MD Santiago, Patrick MD [facility] ~ THIS REPORT FOR: //name// [facility] ED Test Date: 2020-07-15 Test Time: 10:55:25 Pat Name: JIMMY CHAIDEZ Department: Room: Gender: F Banquet Pilot: [facility] : 1955 Requested By: Burak Escamilla Order Number: [id number] MD: Manuel Christianson Measurements Intervals [place] Rate: 71 P: 109 IN: 56 QRS: 47 QRSD: 127 T: 145 QT: 441 QTc: 480 Interpretive Statements Sinus rhythm Nonspecific intraventricular conduction delay Nonspecific T abnormalities, lateral leads Electronically Signed On 07-15-2020 12:22:22 CDT by Manuel Christianson [email or web address] <ELECTRONICALLY SIGNED> By: Manuel Christianson MD, FACC 07/15/20 1222 1055 54 Manuel Christianson MD, FACC /EPI
[2020-07-15 14:58] VITALS: BP 172/78
== END 2020-07-15 14:58 | disposition short-term general hospital (02) ==
LOC: ER 10:43
PROVIDERS: Emergency Medicine
DX: I63.9 Cerebral infarction, unspecified (principal); J45.909 Unspecified asthma, uncomplicated; E78.5 Hyperlipidemia, unspecified; E11.9 Type 2 diabetes mellitus without complications; I25.2 Old myocardial infarction; E66.01 Morbid (severe) obesity due to excess calories; I11.0 Hypertensive heart disease with heart failure; Z68.38 Body mass index [BMI] 38.0-38.9, adult; Z98.61 Coronary angioplasty status; Z90.711 Acquired absence of uterus with remaining cervical stump; Z80.9 Family history of malignant neoplasm, unspecified; Z86.73 Personal history of transient ischemic attack (TIA), and cerebral infarction without residual deficits; Z79.899 Other long term (current) drug therapy; Z79.4 Long term (current) use of insulin; Z79.82 Long term (current) use of aspirin; Z88.1 Allergy status to other antibiotic agents